=== PATIENT | female | born 1960 | race Caucasian/White ===

== ENCOUNTER 2016-07-16 14:05 | Emergency (ER) | payer OTHER ==
[2016-07-16 14:35] VITALS: BP 121/80; PULSE 81; TEMP 98.3; BMI 35.3
--- NOTE | 2016-07-16 15:55 | PDOC ---
History of Present Illness - General Chief Complaint: Pain Stated Complaint: LEFT LEG PAIN Time Seen by Provider: 07/16/16 14:56 History Source: Patient Exam Limitations: No Limitations - History of Present Illness Initial Comments: 07/16/16 15:50 CC swelling to left leg x 1 week; Occurred: reports: last week Severity: reports: moderate Pain Location: reports: lower extremity Method of Injury: Yes: other (no trauma; had 6 hour plane ride last week) Past History - Past Medical History Allergies/Adverse Reactions: Allergies Allergy/AdvReac Type Severity Reaction Status Date / Time No Known Drug Allergies Allergy Verified 07/16/16 14:28 FRIUTS Allergy Uncoded 07/16/16 14:28 Home Medications: Ambulatory Orders Diazepam [Valium -] 2 mg PO BID #10 tablet 04/27/14 Naproxen [Naprosyn -] 500 mg PO BID #30 tablet 04/27/14 Other medical history: denies - Psycho/Social/Smoking Cessation Hx Anxiety: No Suicidal Ideation: No Smoking History: Never smoked Have you smoked in the past 12 months: No Information on smoking cessation initiated: No Hx Alcohol Use: No Drug/Substance Use Hx: No Substance Use Type: None Review of Systems - Review of Systems Constitutional: No: Chills, Fever, Malaise HEENTM: No: Symptoms Reported Respiratory: No: Cough, SOB with Exertion, SOB at Rest, Wheezing, Hemoptysis Cardiac (ROS): No: Chest Pain, Edema, Palpitations ABD/GI: No: Symptoms Reported, Nausea, Vomiting : No: Symptoms Reported Integumentary: Yes: Erythema, Pruritus. No: Dryness Neurological: No: Symptoms reported, Headache, Numbness, Weakness *Physical Exam - Vital Signs Last Vital Signs Temp Pulse Resp BP Pulse Ox 98.3 F 81 16 121/80 98 07/16/16 14:28 07/16/16 14:28 07/16/16 14:28 07/16/16 14:28 07/16/16 14:28 - Physical Exam General Appearance: Yes: Appropriately Dressed HEENT: positive: Pharynx Normal. negative: Nasal Congestion Neck: positive: Supple. negative: Tender, Rigid Respiratory/Chest: positive: Lungs Clear. negative: Respiratory Distress, Accessory Muscle Use Cardiovascular: positive: Regular Rhythm, Regular Rate. negative: Murmur, Tachycardia Integumentary: positive: Warm, Erythema, Other (STS to anterior, lower, left leg , just distal to knee; significant varocosities bilat with Left > right, cristi just proximal to knee) ED Treatment Course - RADIOLOGY Radiology Studies Ordered: Category Date Time Status LEG TIB/FIB-LEFT [RAD] Stat Radiology 07/16/16 15:05 Completed DUPLEX VASCUL US-2LEGS [US] Stat Ultrasound 07/16/16 15:05 Ordered Medical Decision Making - Medical Decision Making 07/16/16 16:17 no DVTs; will treat with warm compresses, elevation; see local MD this week; rest, advil 400mg *DC/Admit/Observation/Transfer Diagnosis at time of Disposition: Acute superficial venous thrombosis of left lower extremity - Discharge Dispostion Disposition: HOME Condition at time of disposition: Stable Admit: No - Referrals Referrals: Melissa Funk MD [Primary Care Provider] - - Patient Instructions Additional Instructions: please use warm soaks to area; Advil 400mg 3 times daily; rest, elevate leg; see local MD this week - Post Discharge Activity Work/School Note: Back to Work
== END 2016-07-16 16:28 | disposition home or self-care (01) ==
LOC: JERFT 14:05
DX: I82.812 Embolism and thrombosis of superficial veins of left lower extremity (principal)
CPT/HCPCS: 73590-TC-LT; 93970-TC; 99281-25

== ENCOUNTER 2020-02-01 08:29 | Emergency (ER) | payer OTHER ==
[2020-02-01 08:38] VITALS: BP 121/78; PULSE 84; TEMP 97.6; BMI 37.8
[2020-02-01 09:56] LABS: BASO % 0.6 % (0-2.0); EOS % 1.9 % (0-4.5); HEMOGLOBIN 14.5 GM/dL (10.7-15.3); LYMPH % 33.6 % (8-40); MCH 31.5 pg (25.7-33.7); MCHC 33.7 g/dl (32.0-36.0); MEAN CELL VOLUME 93.5 fl (80-96); MEAN PLT VOLUME 9.8 fl (7.5-11.1); MONO % 7.4 % (3.8-10.2); NEUT % 56.5 % (42.8-82.8); PLATELET COUNT 224 K/MM3 (134-434); WHITE BLOOD COUNT 7.5 K/mm3 (4.0-10.0)
[2020-02-01 10:10] LABS: URINE APPEARANCE CLEAR; URINE BILIRUBIN NEGATIVE (NEGATIVE); URINE COLOR YELLOW; URINE GLUCOSE (UA) NEGATIVE (NEGATIVE); URINE KETONE NEGATIVE (NEGATIVE); URINE LEUK ESTERASE NEGATIVE (NEGATIVE); URINE NITRITE NEGATIVE (NEGATIVE); URINE PROTEIN NEGATIVE (NEGATIVE); URINE UROBILINOGEN 0.2 mg/dL (0.2-1.0)
[2020-02-01 10:12] LABS: CHLORIDE 107 mmol/L (98-107); POTASSIUM 3.9 mmol/L (3.5-5.1); SODIUM 140 mmol/L (136-145)
[2020-02-01 10:25] LABS: ALBUMIN 3.9 g/dl (3.4-5.0); ANION GAP 8 MMOL/L (8-16); BLOOD UREA NITROGEN 18.8 mg/dL (7-18); CALCIUM 8.9 mg/dL (8.5-10.1); CO2 25 mmol/L (21-32); GLUCOSE,RANDOM 91 mg/dL (74-106); LIPASE 128 U/L (73-393); MAGNESIUM 1.9 mg/dL (1.8-2.4)
[2020-02-01 10:27] LABS: CREATININE 0.8 mg/dL (0.55-1.3); SGOT/AST 17 U/L (15-37); SGPT/ALT 24 U/L (13-61)
[2020-02-01 10:28] LABS: BILIRUBIN,TOTAL 0.8 mg/dL (0.2-1)
[2020-02-01 10:30] LABS: ALK PHOS 110 U/L (45-117)
[2020-02-01] MEDS ORDERED: ACETAMINOPHEN 325 MG TABLET (FP) PO ONE (10:30)
[2020-02-01] MEDS ORDERED: DOXYCYCLINE HYCLATE 100 MG CAPSULE PO ONE ×2 (10:37→10:43)
[2020-02-01] MEDS ORDERED: ACETAMINOPHEN 325 MG TABLET (FP) ONE (10:42)
== END 2020-02-01 10:45 | disposition home or self-care (01) ==
LOC: JER 08:29
DX: R53.83 Other fatigue (principal); L03.116 Cellulitis of left lower limb
CPT/HCPCS: 36415; 71046-TC-FY; 80053; 81003; 82550; 82962; 83690; 83735; 84443; 84484; 85025; 93005; 93010; 99285-25

== ENCOUNTER 2021-11-27 04:54 | Day surgery (SDC) | payer OTHER ==
[2021-11-23 12:32] VITALS: BMI 32.4
[2021-11-27 10:39] VITALS: RESP 18; TEMP 98.5
[2021-11-27 11:16] VITALS: BP 127/74; PULSE 76
== END 2021-11-27 11:23 | disposition home or self-care (01) ==
LOC: JASU-ENDO 04:54
PROVIDERS: ATTEND Internal Medicine Gastroenterology
PROC: 0DBL8ZX Excision of Transverse Colon, Via Natural or Artificial Opening Endoscopic, Diagnostic (ICD-10-PCS; principal; 2021-11-27 10:00)
DX: Z12.11 Encounter for screening for malignant neoplasm of colon (principal); D12.3 Benign neoplasm of transverse colon; K64.8 Other hemorrhoids; Z86.010 Personal history of colon polyps
CPT/HCPCS: 88305-TC